=== PATIENT | male | born 1990 | race Caucasian/White ===

== ENCOUNTER 2016-10-21 22:55 | Inpatient (IN) | payer OTHER ==
[~2016-10-21] VITALS: Ht 175.3 cm; Wt 59.9 kg
--- NOTE | ~2016-10-21 | EKG ---
[address] [address] ELECTROCARDIOGRAM REPORT Name: ALEXY PROCTOR Room #: [facility]#: [id number] Admission: 10/21/16 Attend Phys: Blayne Fried MD Discharge: Date of : 86 Report #: [id number] THIS REPORT FOR: //name// [facility] ED Test Date: 2016-10-21 Test Time: 23:38:21 Pat Name: ALEXY PROCTOR Department: Room: [facility] Gender: M [employer]: [id number] : 1990 Requested By: Sean Stephenson Order Number: [id number] MD: Roly Lorenzo Measurements Intervals [place] Rate: 137 P: 70 OR: 125 QRS: 108 QRSD: 101 T: 63 QT: 317 QTc: 479 Interpretive Statements Sinus tachycardia Borderline right axis deviation Electronically Signed On 10-22-2016 22:23:35 CDT by Roly Lorenzo [email or web address] <ELECTRONICALLY SIGNED> By: Roly Lorenzo MD 10/22/16 [id number] Roly Lorenzo MD /MONSERRAT
[~2016-10-21 22:55] MED LIST: ALEVE220 M1 PO; ALEVE220 MG PO; ALLEGRA60 MG PO; BUTALB-APAP-CA1 EACH PO; FLEXERIL PO; IBUPROFEN 600600 M1 PO; IMITREX 25 MG T25 M1 PO; LIDOCAINE VISC100 ML MM; NORCO 5-325 TA1 EACH PO; ONDANSETRON HCL4 M2 PO; PAIN & FEVER500 MG PO; PERCOCET 5-3251 EACH PO; PHENERGAN12.5 M2 RECTAL; ULTRAM 50MG TAB50 MG PO; ZOFRAN ODT4 MG PO
[2016-10-21 23:17] LABS: ABSOLUTE NEUTROPHILS 11.5 thou/uL (1.4-8.2); BASOPHILS 0.7 % (0.0-2.0); EOSINOPHILS 0.1 % (0.0-3.0); HEMATOCRIT 46.7 % (42.0-52.0); HEMOGLOBIN 15.9 gm/dL (14.0-18.0); LYMPHOCYTES 24.2 % (24.0-44.0); MANUAL DIFF NO; MCV 85.2 fL (80.0-100.0); MONOCYTES 6.7 % (1.0-8.0); PLATELET COUNT 428 thou/uL (150-400); POLYS 68.3 % (36.0-66.0); RBC 5.48 mil/uL (4.50-6.00); RDW 14.3 % (10.5-14.5); WBC 16.9 thou/uL (4.0-11.0)
[2016-10-21 23:27] LABS: URINE BLOOD TRACE (Negative); URINE COLOR YELLOW; URINE GLUCOSE-RANDOM* NEGATIVE (Negative); URINE KETONES 1+ (Negative); URINE LEUKOCYTES-REFLEX NEGATIVE (Negative); URINE PROTEIN (DIPSTICK) 1+ (Negative); URINE SPECIFIC GRAVITY 1.025 (1.003-1.035)
[2016-10-21 23:30] LABS: CALCIUM 9.9 mg/dL (8.5-10.1); CREATININE 1.6 mg/dL (0.7-1.3); POTASSIUM 3.1 mmol/L (3.5-5.1)
[2016-10-21 23:34] LABS: AMP/METHAMP POSITIVE (Negative); BARBITURATES Negative (Negative); BENZODIAZEPINES Negative (Negative); COCAINE Negative (Negative); METHADONE Negative (Negative); OPIATES Negative (Negative); PCP Negative (Negative); THC Negative (Negative)
[2016-10-21 23:34] LABS: ICTOTEST (BILI CONFIRMATORY) Negative (Negative); URINE BILIRUBIN NEGATIVE (Negative)
[2016-10-21 23:40] LABS: ALBUMIN 4.7 g/dL (3.4-5.0); TOTAL BILIRUBIN 1.3 mg/dL (<0.1-1.0); TOTAL PROTEIN 8.8 g/dL (6.4-8.2)
[2016-10-21 23:43] LABS: CASTS None Seen /LPF (None Seen); SQUAMOUS 0-3 Few /LPF (0-3); URINE RBC 0-2 Rare /HPF (0-2)
[2016-10-21 23:44] LABS: CRYSTALS None Seen /LPF (None Seen); URINE WBC-REFLEX 0-5 Rare /HPF (0-5)
[2016-10-22 00:13] VITALS: BP 110/57
[2016-10-22 00:40] VITALS: BP 123/82
[2016-10-22 03:41] VITALS: BP 111/71
[2016-10-22 06:32] LABS: HEMATOCRIT 38.8 % (42.0-52.0); MCH 28.6 pg (26.0-34.0); MCHC 34.3 g/dL (28.0-37.0); MCV 83.4 fL (80.0-100.0); RBC 4.65 mil/uL (4.50-6.00); RDW 13.7 % (10.5-14.5); WBC 13.5 thou/uL (4.0-11.0)
[2016-10-22 06:34] LABS: HEMOGLOBIN 13.3 gm/dL (14.0-18.0)
[2016-10-22 07:02] LABS: ALBUMIN 3.6 g/dL (3.4-5.0); CALCIUM 8.6 mg/dL (8.5-10.1); CREATININE 0.9 mg/dL (0.7-1.3); MAGNESIUM 2.1 mg/dL (1.8-2.4); TOTAL BILIRUBIN 0.8 mg/dL (<0.1-1.0); TOTAL PROTEIN 6.9 g/dL (6.4-8.2)
[2016-10-22 07:50] VITALS: BP 112/71
[2016-10-22 15:40] VITALS: BP 123/80
[2016-10-22 20:50] VITALS: BP 120/75
[2016-10-23 03:24] VITALS: BP 131/80
[2016-10-23 05:17] LABS: HEMATOCRIT 38.6 % (42.0-52.0); HEMOGLOBIN 13.3 gm/dL (14.0-18.0); MCHC 34.5 g/dL (28.0-37.0); MCV 84.2 fL (80.0-100.0); RBC 4.59 mil/uL (4.50-6.00)
[2016-10-23 05:34] LABS: CALCIUM 8.6 mg/dL (8.5-10.1); CREATININE 0.7 mg/dL (0.7-1.3); POTASSIUM 3.5 mmol/L (3.5-5.1)
[2016-10-23 08:04] VITALS: BP 152/104
[2016-10-23 11:44] VITALS: BP 113/84
[2016-10-23 16:02] VITALS: BP 100/73
[2016-10-23 19:12] VITALS: BP 116/77
[2016-10-24 06:06] VITALS: BP 110/74
[2016-10-24 07:11] VITALS: BP 133/69
[2016-10-24 12:07] VITALS: BP 125/72
[2016-10-24 17:04] VITALS: BP 125/72
== END 2016-10-24 17:43 | disposition home or self-care (01) | DRG 91 ==
LOC: ER 22:55 → 4W 23:45 → EROBS 23:45 → 4W 10-22 00:20
PROVIDERS: Emergency Medicine; Hospitalist; Nurse Practitioner Family
DX: G92 Toxic encephalopathy (principal); N17.0 Acute kidney failure with tubular necrosis; F11.20 Opioid dependence, uncomplicated; M54.9 Dorsalgia, unspecified; G89.29 Other chronic pain; F15.10 Other stimulant abuse, uncomplicated; E87.6 Hypokalemia; F29 Unspecified psychosis not due to a substance or known physiological condition; D72.829 Elevated white blood cell count, unspecified; G43.909 Migraine, unspecified, not intractable, without status migrainosus; F17.210 Nicotine dependence, cigarettes, uncomplicated; Z81.8 Family history of other mental and behavioral disorders; Z71.6 Tobacco abuse counseling
CPT/HCPCS: 10040